=== PATIENT | female | born 1980 | race Two or more races ===

== ENCOUNTER 2017-04-29 22:49 | Emergency (ER) | payer BC ==
[~2017-04-29 22:49] MED LIST: AZIT250T6 PO; CIPR500T94 PO; HYDR-971 PO; METR500T PO; NORG1TAB38 PO; ONDA4TAB7 PO
[2017-04-30] MEDS ORDERED: ALBUTEROL SULFATE 2.5 MG/3 ML NEBU. INH ONE
[2017-04-30] MEDS ORDERED: BENZONATATE 100 MG CAPSULE. PO ONE
[2017-04-30] MEDS ORDERED: IBUPROFEN 600 MG TABLET. PO ONE
[2017-04-30 00:17] LABS: BILIRUBIN,URINE NEGATIVE (NEG); GLUCOSE,URINE NEGATIVE (NEG); NITRITE,URINE NEGATIVE (NEG); PH,URINE 5.5; PROTEIN,URINE NEGATIVE (NEG-TRACE); UROBILINOGEN,URINE 0.2 mg/dL (0.2 mg/dL)
[2017-04-30 00:22] LABS: NEG OBC UR NEG; POS OBC UR POS
[2017-04-30 00:25] LABS: BACTERIA,URINE MODERATE /HPF (0-FEW); RBC,URINE OCC /HPF (0-2); SQUAMOUS EPITHELIAL CELL,UR MOD /LPF
[2017-04-30] MEDS ORDERED: IV NORMAL SALINE 1000ML BAG 1,000 ML IV ONE (00:30)
[2017-04-30 00:31] LABS: BASO % 0 % (0-3); EOS % 1 % (0-3); HEMATOCRIT 34.8 % (36.0-47.0); HEMOGLOBIN 11.2 g/dL (12.0-15.5); LYMPH # 1.4 x10^3/uL (1.0-4.8); LYMPH % 23 % (24-48); MEAN CORPUSCULAR HEMOGLOBIN 25 pg (25-35); MEAN CORPUSCULAR HGB CONC 32 g/dL (31-37); MEAN CORPUSCULAR VOLUME 77 fL (79-100); MONO % 13 % (0-9); NEUT % 64 % (31-73); PLATELET COUNT 170 x10^3/uL (140-400); RED BLOOD COUNT 4.53 x10^6/uL (3.50-5.40); RED CELL DISTRIBUTION WIDTH 18.7 % (11.5-14.5)
[2017-04-30 00:45] LABS: CALCIUM 8.7 mg/dL (8.5-10.1); CREATININE 0.7 mg/dL (0.6-1.0); GFR 95.2; POTASSIUM 3.4 mmol/L (3.5-5.1)
[2017-04-30 01:03] VITALS: BP 148/91
[2017-04-30] MEDS ORDERED: BENZ100C PO (01:20)
[2017-04-30] MEDS ORDERED: AZIT250T6 PO (01:20)
[2017-04-30] MEDS ORDERED: PROAIR HFA8.5 GM INH (01:20)
--- NOTE | 2017-04-30 01:20 | PHYS DOC ---
Past Medical History Past Medical History: No Pertinent History Past Surgical History: Cholecystectomy Additional Past Surgical Histo: UTERINE ABLATION Alcohol Use: Occasionally Drug Use: None Adult General Chief Complaint Chief Complaint: Congestion HPI HPI Patient is a 36 year old female who presents with cough. The patient reports 3 day history of illness. Reports sweats/chills, body aches, generalized headache, nasal congestion, sore throat, dry cough. Denies chest pain, shortness of breath. Seen at [facility] recently and diagnosed with upper respiratory infection. Previously healthy, nonsmoker. Review of Systems Review of Systems Constitutional: Reports sweats and chills Eyes: Denies change in visual acuity HENT: Reports nasal congestion and sore throat Respiratory: Reports cough, denies shortness of breath Cardiovascular: Denies chest pain or edema GI: Denies abdominal pain, nausea, vomiting, or diarrhea : Denies dysuria or hematuria Musculoskeletal: Denies back pain or joint pain Integument: Denies rash or skin lesions Neurologic: Reports headache, denies focal weakness or sensory changes Current Medications Current Medications Current Medications Medications (Trade) Dose Ordered Sig/Arturo Start Time Stop Time Status Last Admin Dose Admin Acetaminophen/ Hydrocodone Bitart (Lortab 5/325) 2 tab 1X ONCE 04/30/17 01:30 04/30/17 01:31 DC 04/30/17 01:31 2 TAB Albuterol Sulfate (Ventolin Neb Soln) 2.5 mg 1X ONCE 04/30/17 00:00 04/30/17 00:01 DC 04/30/17 00:14 2.5 MG Benzonatate (Tessalon Perle) 100 mg 1X ONCE 04/30/17 00:00 04/30/17 00:01 DC 04/30/17 00:18 100 MG Ibuprofen (Motrin) 600 mg 1X ONCE 04/30/17 00:00 04/30/17 00:01 DC 04/30/17 00:18 600 MG Sodium Chloride 1,000 ml @ 1,000 mls/hr 1X ONCE 04/30/17 00:30 04/30/17 01:29 DC 04/30/17 00:18 1,000 MLS/HR Allergies Allergies Allergies Coded Allergies Type Severity Reaction Last Updated Verified morphine Allergy Intermediate 05/03/16 Yes promethazine Allergy Intermediate twitching 05/03/16 No Physical Exam Physical Exam Constitutional: Obese, no acute distress, non-toxic appearance. HENT: Normocephalic, atraumatic, bilateral external ears normal, oropharynx moist, no tonsillar enlargement or exudate, nose normal. Eyes: PERRLA, EOMI, conjunctiva normal, no discharge. Neck: supple, no stridor. No meningismus Cardiovascular: Tachycardic, regular, no murmurs, no edema. Lungs & Thorax: LCTAB, no wheezing, no respiratory distress. Frequent dry cough. Abdomen: soft, nontender, nondistended. Skin: Warm, dry, no erythema, no rash. Back: No CVA tenderness. Extremities: No tenderness, no edema. Neurologic: Alert and oriented X 3, cranial nerves II through XII grossly intact , symmetric strength and sensation to upper and lower extremities, no focal deficits noted. Psychologic: Affect normal, judgement normal, mood normal. Current Patient Data Vital Signs Vital Signs Date Time Temp Pulse Resp B/P (MAP) Pulse Ox O2 Delivery O2 Flow Rate FiO2 04/30/17 01:31 99 Room Air 04/30/17 01:03 98 20 148/91 (110) 04/29/17 23:28 100.4 100.4 Lab Values Laboratory Tests Test 04/30/17 00:08 White Blood Count 6.0 x10^3/uL (4.0-11.0) Red Blood Count 4.53 x10^6/uL (3.50-5.40) Hemoglobin 11.2 g/dL (12.0-15.5) L Hematocrit 34.8 % (36.0-47.0) L Mean Corpuscular Volume 77 fL (79-100) L Mean Corpuscular Hemoglobin 25 pg (25-35) Mean Corpuscular Hemoglobin Concent 32 g/dL (31-37) Red Cell Distribution Width 18.7 % (11.5-14.5) H Platelet Count 170 x10^3/uL (140-400) Neutrophils (%) (Auto) 64 % (31-73) Lymphocytes (%) (Auto) 23 % (24-48) L Monocytes (%) (Auto) 13 % (0-9) H Eosinophils (%) (Auto) 1 % (0-3) Basophils (%) (Auto) 0 % (0-3) Neutrophils # (Auto) 3.8 x10^3uL (1.8-7.7) Lymphocytes # (Auto) 1.4 x10^3/uL (1.0-4.8) Monocytes # (Auto) 0.8 x10^3/uL (0.0-1.1) Eosinophils # (Auto) 0.1 x10^3/uL (0.0-0.7) Basophils # (Auto) 0.0 x10^3/uL (0.0-0.2) Urine Collection Type Unknown Urine Color Yellow Urine Clarity Clear Urine pH 5.5 Urine Specific [place] 1.020 Urine Protein Negative mg/dL (NEG-TRACE) Urine Glucose (UA) Negative mg/dL (NEG) Urine Ketones (Stick) 15 mg/dL (NEG) Urine Blood Trace (NEG) Urine Nitrite Negative (NEG) Urine Bilirubin Negative (NEG) Urine Urobilinogen Dipstick 0.2 mg/dL (0.2 mg/dL) Urine Leukocyte Esterase Moderate (NEG) Urine RBC Occ /HPF (0-2) Urine WBC 1-4 /HPF (0-4) Urine Squamous Epithelial Cells Mod /LPF Urine Bacteria Moderate /HPF (0-FEW) Urine Mucus Mod /LPF Urine Test Negative (NEG) Sodium Level 137 mmol/L (136-145) Potassium Level 3.4 mmol/L (3.5-5.1) L Chloride Level 101 mmol/L (98-107) Carbon Dioxide Level 27 mmol/L (21-32) Anion Gap 9 (6-14) Blood Urea Nitrogen 7 mg/dL (7-20) Creatinine 0.7 mg/dL (0.6-1.0) Estimated GFR (Cockcroft-Gault) 95.2 Glucose Level 100 mg/dL (70-99) H Calcium Level 8.7 mg/dL (8.5-10.1) Laboratory Tests 04/30/17 00:08 Laboratory Tests 04/30/17 00:08 EKG EKG [] Radiology/Procedures Radiology/Procedures CXR: interpreted by me: RML infiltrate, no pneumothorax, no cardiomegaly.[] Course & Med Decision Making Course & Med Decision Making Pertinent Labs and Imaging studies reviewed. (See chart for details) The patient presents with cough. Noted to be febrile and tachycardic upon arrival. Gave ibuprofen and IV fluids. Her heart rate improved to 90s. Her oxygen saturation was stable. Chest x-ray shows infiltrate consistent with community-acquired pneumonia. We'll give prescription for Z-Yonny as well as albuterol inhaler and Tessalon Perles. Recommend supportive care with rest, by mouth hydration, Tylenol or ibuprofen for pain or fevers. Follow-up with primary care physician in 2-3 days. Return to the emergency department for severe shortness of breath, any otherwise worsening condition. Discharged home in stable condition. [] Dragon Disclaimer Dragon Disclaimer This electronic medical record was generated, in whole or in part, using a voice recognition dictation system. Departure Departure Impression: Primary Impression: Community acquired bacterial pneumonia Disposition: HOME, SELF-CARE Condition: STABLE Referrals: JONI ISBELL (PCP) Patient Instructions: Fever, Adult, [id number], Pneumonia, Adult, Easy-to- Read Additional Instructions: You were seen in the emergency department today for cough. You had a fever & pneumonia on chest x-ray. Please rest, drink fluids, take tylenol or ibuprofen for pain or fever. Take antibiotics as prescribed, tessalon perles for cough, & use inhaler as needed. Follow up with your doctor in 2-3 days for recheck. Come back for severe shortness of breath or otherwise worsening condition. Scripts Albuterol Sulfate (PROAIR HFA INHALER) 8.5 Gm Hfa.aer.ad 1 PUFF INH PRN Q6HRS Y for SHORTNESS OF BREATH, #1 INHALER 0 Refills Prov: REESE HOROWITZ MD 04/30/17 Benzonatate (TESSALON PERLE) 100 Mg Capsule 100 MG PO TID Y for COUGH, #15 CAP Prov: REESE HOROWITZ MD 04/30/17 Azithromycin (AZITHROMYCIN TABLET) 250 Mg Tablet 1 PKG PO UD, #6 TAB Prov: REESE HOROWITZ MD 04/30/17 REESE HOROWITZ MD Apr 30, 2017 01:20
[2017-04-30] MEDS ORDERED: HYDROcodone/APAP 5/325MG 1 TAB TABLET PO ONE (01:30)
--- NOTE | 2017-04-30 07:30 | RAD ---
Indication cough. Fever. Frontal and lateral views of the chest were obtained and are compared to an examination one year ago. The heart and pulmonary vessels appear normal. There is a patchy infiltrate in the left midlung. A there may be a minimal infiltrate in the right mid and lower lung field. There is no pleural fluid. There is no pneumothorax. Bony structures appear grossly intact. IMPRESSION: Minimal patchy infiltrates in the lungs suggesting pneumonia.
== END 2017-04-30 01:33 | disposition home or self-care (01) ==
LOC: ER 22:49
DX: J15.9 Unspecified bacterial pneumonia (principal); Z90.49 Acquired absence of other specified parts of digestive tract; Z98.890 Other specified postprocedural states; Z88.5 Allergy status to narcotic agent; Z88.8 Allergy status to other drugs, medicaments and biological substances
CPT/HCPCS: 36415; 71020; 80048; 81001; 81025; 85027; 87086; 94640; 96360; 99285; J7030; J7613

== ENCOUNTER 2018-01-02 18:56 | Emergency (ER) | payer BC ==
[2018-01-02 19:34] LABS: ADD MAN DIFF? NO
[2018-01-02 19:35] LABS: BASO % 0 % (0-3); EOS # 0.1 x10^3/uL (0.0-0.7); EOS % 1 % (0-3); HEMATOCRIT 39.1 % (36.0-47.0); LYMPH # 2.6 x10^3/uL (1.0-4.8); LYMPH % 28 % (24-48); MEAN CORPUSCULAR HEMOGLOBIN 28 pg (25-35); MEAN CORPUSCULAR HGB CONC 33 g/dL (31-37); MEAN CORPUSCULAR VOLUME 84 fL (79-100); MONO # 0.7 x10^3/uL (0.0-1.1); MONO % 8 % (0-9); NEUT # 5.8 x10^3uL (1.8-7.7); NEUT % 63 % (31-73); PLATELET COUNT 233 x10^3/uL (140-400); RED BLOOD COUNT 4.65 x10^6/uL (3.50-5.40); RED CELL DISTRIBUTION WIDTH 14.6 % (11.5-14.5); WHITE BLOOD COUNT 9.3 x10^3/uL (4.0-11.0)
[2018-01-02] MEDS: IV NORMAL SALINE 1000ML BAG 1,000 ML IV (19:38)
[2018-01-02 19:45] LABS: ANION GAP 10 (6-14); BLOOD UREA NITROGEN 12 mg/dL (7-20); CALCIUM 9.3 mg/dL (8.5-10.1); CARBON DIOXIDE 26 mmol/L (21-32); CHLORIDE 105 mmol/L (98-107); CREATININE 0.7 mg/dL (0.6-1.0); GFR 94.7; GLUCOSE 111 mg/dL (70-99); SODIUM 141 mmol/L (136-145)
[2018-01-02 19:51] LABS: ALBUMIN 3.9 g/dL (3.4-5.0); ALK PHOS 63 U/L (46-116); ALT (SGPT) 35 U/L (14-59); AST (SGOT) 23 U/L (15-37); DIRECT BILIRUBIN < 0.1 mg/dL (0.0-0.2); MAGNESIUM 1.8 mg/dL (1.8-2.4); TOTAL BILIRUBIN 0.3 mg/dL (0.2-1.0); TOTAL PROTEIN 7.5 g/dL (6.4-8.2)
[2018-01-02 19:59] LABS: TROPONINI < 0.017 ng/mL (0.000-0.055)
[2018-01-02 20:00] LABS: CKMB INDEX 1.4 % (0-4); CKMB MASS 1.4 ng/mL (0.0-3.6); CREATINE KINASE 97 U/L (26-192)
[2018-01-02 20:00] LABS: NT-PRO BNP 106 pg/mL (0-124); THYROID STIM HORMONE (TSH) 1.843 uIU/mL (0.358-3.74)
[2018-01-02 20:19] LABS: URINE HCG POC HCG NEGATIVE (Negative)
[2018-01-02 20:21] LABS: BILIRUBIN,URINE NEGATIVE (NEG); CLARITY,URINE CLOUDY; COLOR,URINE YELLOW; GLUCOSE,URINE NEGATIVE (NEG); NITRITE,URINE NEGATIVE (NEG); PROTEIN,URINE NEGATIVE (NEG-TRACE); UROBILINOGEN,URINE 0.2 mg/dL (0.2 mg/dL)
[2018-01-02] MEDS: ACETAMINOPHEN 500 MG TABLET PO (20:23)
[2018-01-02 20:29] LABS: AMPHETAMINE/METHAMPHETAMINE NEG (NEG); BARBITURATES NEG (NEG); BENZODIAZEPINES NEG (NEG); CANNABINOIDS NEG (NEG); COCAINE NEG (NEG); ETHANOL, URINE NEG (NEG); METHADONE NEG (NEG); OPIATES NEG (NEG); PHENCYCLIDINE NEG (NEG)
[2018-01-02 20:39] LABS: BACTERIA,URINE FEW /HPF (0-FEW); RBC,URINE 0 /HPF (0-2); SQUAMOUS EPITHELIAL CELL,UR FEW /LPF
[2018-01-02 20:40] LABS: D-DIMER < 0.27 ug/mlFEU (0.00-0.50)
== END 2018-01-02 21:41 | disposition home or self-care (01) ==
LOC: ER 18:56
DX: F41.9 Anxiety disorder, unspecified (principal); F32.9 Major depressive disorder, single episode, unspecified; I10 Essential (primary) hypertension; Z90.49 Acquired absence of other specified parts of digestive tract; Z88.5 Allergy status to narcotic agent; Z88.8 Allergy status to other drugs, medicaments and biological substances
CPT/HCPCS: 36415; 71045; 80048; 80076; 80307; 81001; 81025; 82553; 83735; 83880; 84443; 84484; 85025; 85379; 93005; 96361; 96374; 99285-25; J2060; J7030

== ENCOUNTER 2018-03-15 10:04 | Emergency (ER) | payer BC | END 2018-03-15 11:23 | disposition home or self-care (01) | LOC: ER 11:23 | DX: H66.93 Otitis media, unspecified, bilateral (principal); J01.10 Acute frontal sinusitis, unspecified; J01.00 Acute maxillary sinusitis, unspecified; R51 Headache; R05 Cough; F32.9 Major depressive disorder, single episode, unspecified; I10 Essential (primary) hypertension; Z90.49 Acquired absence of other specified parts of digestive tract; Z90.710 Acquired absence of both cervix and uterus; Z88.5 Allergy status to narcotic agent; Z88.8 Allergy status to other drugs, medicaments and biological substances | CPT/HCPCS: 99283 ==